=== PATIENT | female | born 1970 | race Caucasian/White ===

== ENCOUNTER → 2017-05-27 | Outpatient (CLI) | payer OTHER ==
[2006-05-28 08:16] VITALS: TEMP 98.2
== END ==
LOC: MC.RAD 16:33
DX: Z12.31 Encounter for screening mammogram for malignant neoplasm of breast (principal)

== ENCOUNTER → 2018-06-14 | Outpatient (CLI) | payer BC ==
[2006-05-28 08:16] VITALS: TEMP 98.2
== END ==
LOC: MC.RAD 16:00
DX: Z12.31 Encounter for screening mammogram for malignant neoplasm of breast (principal)

== ENCOUNTER → 2019-02-17 | Outpatient (CLI) | payer BC ==
[2006-05-28 08:16] VITALS: TEMP 98.2
== END ==
LOC: COL.RAD 14:15
DX: Z13.6 Encounter for screening for cardiovascular disorders (principal); I89.0 Lymphedema, not elsewhere classified

== ENCOUNTER → 2019-06-26 | Outpatient (CLI) | payer BC ==
[2006-05-28 08:16] VITALS: TEMP 98.2
== END ==
LOC: MC.RAD 10:45
DX: Z12.31 Encounter for screening mammogram for malignant neoplasm of breast (principal)

== ENCOUNTER → 2020-06-27 | Outpatient (CLI) | payer BC ==
[2006-05-28 08:16] VITALS: TEMP 98.2
== END ==
LOC: MC.RAD 13:00
DX: Z12.31 Encounter for screening mammogram for malignant neoplasm of breast (principal)

== ENCOUNTER → 2021-09-26 | Outpatient (CLI) | payer BC ==
[2006-05-28 08:16] VITALS: TEMP 98.2
== END ==
LOC: MC.RAD 08:29
DX: Z12.31 Encounter for screening mammogram for malignant neoplasm of breast (principal); Z00.00 Encounter for general adult medical examination without abnormal findings